=== PATIENT | male | born 1990 | race Caucasian/White ===

== ENCOUNTER → 2019-05-13 | Day surgery (SDC) | payer OTHER ==
[2013-08-18 14:45] VITALS: BP 158/100
== END ==
LOC: MSO 07:32
DX: K92.1 Melena (principal); Z80.9 Family history of malignant neoplasm, unspecified; Z87.891 Personal history of nicotine dependence; Z88.0 Allergy status to penicillin
CPT/HCPCS: 00812; J2704; J3010; J7120

== ENCOUNTER → 2021-05-11 | Outpatient (CLI) | payer OTHER | LOC: RAD 13:04 | DX: R10.31 Right lower quadrant pain (principal) | CPT/HCPCS: Q9967 ==